=== PATIENT | female | born 1950 | race Caucasian/White ===

== ENCOUNTER 2019-10-10 06:28 | Day surgery (SDC) | payer OTHER ==
[2019-10-08 11:23] LABS: Absolute Lymphocytes (CBC) 1.8 K/uL (0.7-4.9); Basophils % 1.3 % (0-1.3); Hematocrit 39.2 % (36.0-45.0); Lymphocytes % 28.8 % (15.3-44.8); MPV 9.1 fL (7.6-11.3); RBC Red Blood Cell Count 4.05 M/uL (3.86-4.86)
--- NOTE | 2019-10-08 11:25 | EKG ---
Test Date: 2019-10-08 Test Time: 10:53:54 Grant Officer: JOO MEASUREMENT RESULTS: Intervals: Rate: 70 NV: 116 QRSD: 72 QT: 376 QTc: 406 [place]: P: 72 NV: 116 QRS: 75 T: 70 INTERPRETIVE STATEMENTS: Normal sinus rhythm Normal ECG No previous ECG available for comparison Electronically Signed On 10-08-19 11:24:44 SITE ACQUISITION MANAGER by Thor Ward
[2019-10-08 11:40] LABS: Potassium 4.4 mmol/L (3.5-5.1)
[2019-10-10] MEDS ORDERED: Ringers Lactate 1,000 ML IV ONE ×2 (06:45→08:13)
[2019-10-10] MEDS ORDERED: CEFAZOLIN/SWI 1gm 1 GM/10 ML SYR ONE (06:45)
[2019-10-10] MEDS ORDERED: propofoL 200 MG/20 ML VIAL IV ONE (07:04)
[2019-10-10] MEDS ORDERED: LIDOCAINE 2% MPF 5 ML VIAL ONE (07:05)
[2019-10-10] MEDS ORDERED: FENTANYL CITR 250 MCG/5 ML ONE (07:05)
[2019-10-10] MEDS ORDERED: ONDANSETRON 4 MG/2 ML VIAL ONE ×2 (07:06→08:55)
[2019-10-10] MEDS ORDERED: MIDAZOLAM HCL 2 MG/2 ML INJ ONE (07:06)
[2019-10-10] MEDS ORDERED: BUPIVACA 0.5%/EPI 0.0005%/PF 30 ML VIAL ONE (07:29)
--- NOTE | 2019-10-10 08:20 | P.BOP ---
Preoperative diagnosis: right knee pain with mechanical sx, probable meniscal tear (s) Postoperative diagnosis: mm/lm tear, cm 4 lat, 2-3 medial/pf Primary procedure: MM/LM debridement Estimated blood loss: <10 Anesthesia: General Complications: None Transferred to: Recovery Room Condition: Good
[2019-10-10] MEDS: HYDROMORPHONE HCL 1 MG/ML INJ ONE ×2 (08:40→08:46)
[2019-10-10] MEDS ORDERED: KETOROLAC 30 MG/ML INJ ONE (08:56)
[2019-10-10] MEDS ORDERED: HYDROMORPHONE HCL 1 MG/ML INJ ONE (09:11)
[2019-10-10 09:44] VITALS: BP 136/70; TEMP 97.3; O2SAT 93
[2019-10-10] MEDS ORDERED: CODEINE 30MG/APAP 300MG TAB ONE (09:59)
--- NOTE | 2019-10-10 18:02 | OP ---
Date of Procedure: 10/10/2019 Surgeon: Nick Reid MD Preoperative Diagnoses: Right knee pain with mechanical symptoms, some arthritic changes as well as probable meniscal tear or tears. 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 Also small medial meniscus tear, also larg e complex of lateral meniscal tear with displaceable meniscal tissue. Estimated Blood Loss: Less than 10 cc. Complications: There is no complication. Pathology/specimens: No pathology specimens sent. Indications For Operation: Ms. Cantu is a 68-year-old female who unfortunately has been suffering with the right knee for some time with mechanical symptoms as well as pain and swelling. She has an MRI, which demonstrates probable meniscal tear or tears as well as some degenerative changes. All ri sks, benefits, and alternatives to operative intervention were discussed with the patient including t hat arthroscopy is not good for degenerative articular lesions, however, this may help with mechanica l symptoms, especially with displaced or displaceable meniscal tears. She says she understands thing s as presented, understands the other risks associated and agrees to proceed. Description Of Procedure: The patient was taken to the operating room and placed in the supine posit ion. General anesthesia was obtained by staff. Following this, a well-padded tourniquet placed on s uperior right thigh. Right lower extremity was then prepped and draped in the usual sterile fashion for procedure. Following this, a standard superior medial arthroscopy portal was then placed with pl acement of a drainage needle with liberation approximately 40 cc of rather normal-appearing synovial fluid. This was followed by placement of an inferolateral arthroscopy portal and the camera was then placed to the knee atraumatically with 1 pass. The knee was then sequentially examined including champion prapatellar pouch, medial lateral gutters, and medial lateral compartments as well as notch, patellof emoral joint. There was quite a bit of synovial fronding indicative of significant inflammation seen more or less throughout. Also, there was grade 2 chondromalacia of the medial and patellofemoral horacio int. Also seen is a small tear of the medial meniscus. 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 An inferior medial arthroscopy port al was then established using a needle for localization. This allowed for placement of a probe and u sed as a working portal. A small medial meniscal tear was then debrided back to a firm hook stable, well contoured base. Attention was then turned to the lateral aspect where a combination of hand ins truments as well as 3.5 and 4.5 madelyn then used to debride back the lateral meniscus to a firm hook stable, well contoured base. The knee was then again examined in all the above areas with some syno vial tissue being removed throughout if it appeared to be greatly enlarged, but no formal synovectomy is done. This was followed by removal of the inferior arthroscopy instruments and staple of the inf erior arthroscopy instruments. The superior medial arthroscopy portal was used for placement of Berto gina with epinephrine. This was then stapled as well. The patient was placed in a well-padded steri le dressing, awakened, and taken to recovery room in good condition. There were no complications. SE/MODL Voice ID: [id number] Report ID: [id number]
== END 2019-10-10 10:35 | disposition home or self-care (01) ==
LOC: OR 06:28
PROVIDERS: ATTEND Orthopaedic Surgery
PROC: 0SBC4ZZ Excision of Right Knee Joint, Percutaneous Endoscopic Approach (ICD-10-PCS; 2019-10-10)
PROC: 0SBC4ZZ Excision of Right Knee Joint, Percutaneous Endoscopic Approach (ICD-10-PCS; principal; 2019-10-10 07:30)
DX: S83.271A Complex tear of lateral meniscus, current injury, right knee, initial encounter (principal); S83.241A Other tear of medial meniscus, current injury, right knee, initial encounter; M94.261 Chondromalacia, right knee; I10 Essential (primary) hypertension; F32.9 Major depressive disorder, single episode, unspecified
CPT/HCPCS: 29880; 93005; 85025; 80048; 36415; J2704; J2250; J3010; J1170 ×2; J0690; J7120 ×2; J2405 ×2

== ENCOUNTER 2021-01-20 16:56 | Emergency (ER) | payer OTHER ==
[2021-01-20] MEDS ORDERED: ONDANSETRON 4 MG/2 ML VIAL ONE (17:57)
[2021-01-20] MEDS ORDERED: MORPHINE 4 MG/ML SYR ONE ×2 (17:57→19:40)
--- NOTE | 2021-01-20 19:09 | RAD REPORT ---
EXAM DESCRIPTION: RAD - Knee Left 3 View - 01/20/2021 6:34 pm CLINICAL HISTORY: Left knee pain status post injury FINDINGS: No fracture or dislocation is seen. Bones are osteoporotic. A large joint effusion is present. If patient continues have symptoms to suggest an occult fracture, ligamentous or meniscal injury then MRI would be recommended
--- NOTE | 2021-01-20 19:10 | RAD REPORT ---
EXAM DESCRIPTION: RAD - Wrist Left 3 View - 01/20/2021 6:34 pm CLINICAL HISTORY: Left wrist pain status post injury FINDINGS: An impacted mildly displaced fracture distal radius. Avulsion fracture of the ulnar styloid process of indeterminate age No dislocation
--- NOTE | 2021-01-20 19:36 | ER ---
Nurse's Notes [facility] Name: Emerald Cantu Age: 70 yrs Sex: Female : 1950 Arrival Date: 01/20/2021 Time: 17:03 Bed 25 Private MD: Sylvester Mahan C Diagnosis: Effusion, left knee;Colles' fracture of left radius Presentation: 01/20 17:07 Chief complaint: Patient states: i went downstairs and twisted my LEFT knee and was on tw2 crutches and should have picked up the rugs and i didn't. so i fell and landed on my RIGHT wrist. cannot put weight on my LEFTknee. Coronavirus screen: At this time, the client does not indicate any symptoms associated with coronavirus-19. Ebola Screen: Patient denies travel to an Ebola-affected area in the 21 days before illness onset. Initial Sepsis Screen: Does the patient meet any 2 criteria? Does the patient have a suspected source of infection? No. Patient's initial sepsis screen is negative. Risk Assessment: Do you want to hurt yourself or someone else? Patient reports no desire to harm self or others. Onset of symptoms was January 20, 2021. 17:07 Method Of Arrival: Wheelchair tw2 17:07 Acuity: DONNELL 4 tw2 Triage Assessment: 17:12 General: Appears in no apparent distress. slender, well groomed, Behavior is calm, tw2 cooperative, appropriate for age. Pain: Complains of pain in LEFT knee and LEFT wrist. Historical: - Allergies: 17:12 Codeine; tw2 - Home Meds: 17:12 gabapentin oral oral [Active]; paroxetine oral oral [Active]; tw2 - PMHx: 17:12 Hypertension; Hyperlipidemia; tw2 - PSHx: 17:12 right knee sx; tw2 - Immunization history:: Adult Immunizations. - Social history:: Smoking status: . Screenin:28 Abuse screen: Denies threats or abuse. Nutritional screening: No deficits noted. vg1 Tuberculosis screening: No symptoms or risk factors identified. Fall Risk Fall in past 12 months (25 points). No secondary diagnosis (0 pts). No IV (0 pts). Ambulatory Aid- None/Bed Rest/Nurse Assist (0 pts). Gait- Normal/Bed Rest/Wheelchair (0 pts) Mental Status- Oriented to own ability (0 pts). Total Zhou Fall Scale indicates Low Risk Score (25-44 pts). Fall prevention measures have been instituted. Side Rails Up X 2 Placed close to Nursing Station Family Present and informed to notify staff if they need to leave bedside. Assessment: 17:26 General: Appears in no apparent distress. uncomfortable, Behavior is calm, cooperative. vg1 Pain: Complains of pain in left wrist and left knee Pain currently is 10 out of 10 on a pain scale. Quality of pain is described as throbbing, Pain began 1 day ago. Noted to be grimacing. Neuro: Level of Consciousness is awake, alert, obeys commands, Oriented to person, place, time, situation. Cardiovascular: Capillary refill < 3 seconds in bilateral fingers toes. Respiratory: Airway is patent Respiratory effort is even, unlabored. GI: No signs and/or symptoms were reported involving the gastrointestinal system. : No signs and/or symptoms were reported regarding the genitourinary system. EENT: No signs and/or symptoms were reported regarding the EENT system. Derm: Skin is intact, is healthy with good turgor, Bruising that is dark purple, on left wrist. Musculoskeletal: Range of motion: limited in left wrist and left knee Swelling present in left wrist and left knee. 17:33 Reassessment: Received VO from Dr Copeland to administer 4 mg of Morphine IVP x1 and vg1 Zofran 4 mg IVP x1. 19:49 Reassessment: Patient is alert, oriented x 3, equal unlabored respirations, skin bb warm/dry/pink. sling to left arm in place pt verbalized understanding of and agrees to plan of care discharge instructions given pt assisted to exit via wheelchair accompanied by ophthalmology surgical technician and family Patient states feeling better. Vital Signs: 17:07 BP 156 / 96; Pulse 92; Resp 17; Temp 98.5(TE); Pulse Ox 97% on R/A; Weight 65.77 kg tw2 (R); Pain 10/10; 17:50 BP 166 / 99; Pulse 86; Resp 16; Pulse Ox 100% on R/A; vg1 19:44 BP 152 / 94; Pulse 85; Resp 16; Pulse Ox 100% on R/A; vg1 ED Course: 17:03 Patient arrived in ED. mr 17:03 Sylvester Mahan MD is Private Physician. mr 17:10 Triage completed. tw2 17:12 Arm band placed on. tw2 17:19 Shailesh Copeland MD is Attending Physician. kdr 17:26 Gloria Lopez, RN is Primary Nurse. vg1 17:29 Patient maintains SpO2 saturation greater than 95% on room air. vg1 17:30 Patient has correct armband on for positive identification. Bed in low position. Call vg1 light in reach. Side rails up X2. Adult w/ patient. 17:45 Inserted saline lock: 20 gauge in right antecubital area, using aseptic technique. vg1 18:33 Wrist Left (3 View) XRAY In Process Unspecified. EDMS 18:34 Knee Left 3 View XRAY In Process Unspecified. EDMS 18:41 Endy Cooney PA is PHCP. cp 19:32 Nick Reid MD is Referral Physician. cp 19:38 Orthoglass splint: Sugar tong splint applied on left arm. Knee immobilizer applied on oe left knee. Sling applied to left arm. 19:49 No provider procedures requiring assistance completed. IV discontinued, intact, vg1 bleeding controlled, No redness/swelling at site. Pressure dressing applied. Administered Medications: 17:46 Drug: Zofran (Ondansetron) 4 mg Route: IVP; Site: right antecubital; vg1 18:30 Follow up: Response: No adverse reaction vg1 17:48 Drug: morphine 4 mg Route: IVP; Site: right antecubital; vg1 18:30 Follow up: Response: No adverse reaction; Pain is decreased vg1 19:32 Drug: morphine 4 mg {Note: rass 0.} Route: IVP; Site: right antecubital; vg1 19:50 Follow up: Response: No adverse reaction; Pain is decreased vg1 Outcome: 19:35 Discharge ordered by . cp 19:49 Discharged to home via wheelchair, with family. vg1 19:49 Condition: stable 19:49 Discharge instructions given to patient, family, Instructed on discharge instructions, follow up and referral plans. medication usage, Demonstrated understanding of instructions, follow-up care, medications, Prescriptions given X 1. 19:50 Patient left the ED. vg1 Signatures: Dispatcher [employer] EDMS Shailesh Copeland MD MD [facility] Emanuel, Bindu mr Dumont, Alda, RN RN bb Endy Cooney PA PA cp Wise, Tara, RN RN tw2 Ayo Colvin Victoria RN RN vg1
--- NOTE | 2021-01-20 19:36 | EDPHYS ---
Physician Documentation [facility] Name: Emerald Cantu Age: 70 yrs Sex: Female : 1950 Arrival Date: 01/20/2021 Time: 17:03 Bed 25 Private MD: Sylvester Mahan C ED Physician Shailesh Copeland HPI: 01/20 18:45 This 70 yrs old Female presents to ER via Wheelchair with complaints of Fall cp Injury. 18:45 Details of fall: The patient fell from an upright position, while walking, after cp tripping on floor rug. Onset: The symptoms/episode began/occurred today. 18:45 Associated injuries: The patient sustained left knee, painful injury, swelling, left cp wrist, decreased range of motion, obvious fracture, painful injury, swelling. 18:45 Patient reports trip and fall causing injury to left wrist and left knee. cp Historical: - Allergies: 17:12 Codeine; tw2 - Home Meds: 17:12 gabapentin oral oral [Active]; paroxetine oral oral [Active]; tw2 - PMHx: 17:12 Hypertension; Hyperlipidemia; tw2 - PSHx: 17:12 right knee sx; tw2 - Immunization history:: Adult Immunizations. - Social history:: Smoking status: . ROS: 18:55 Constitutional: Negative for body aches, chills, fever, poor PO intake. cp 18:55 Eyes: Negative for injury, pain, redness, and discharge. cp 18:55 ENT: Negative for ear pain, sore throat, difficulty swallowing, difficulty handling secretions. 18:55 Cardiovascular: Negative for chest pain, palpitations. 18:55 Respiratory: Negative for cough, shortness of breath, wheezing. 18:55 Back: Negative for pain at rest, pain with movement. 18:55 MS/extremity: Positive for injury or acute deformity, decreased range of motion, pain, swelling, tenderness, of the left knee and left wrist, Negative for paresthesias. 18:55 Neuro: Negative for altered mental status, dizziness, headache, syncope, weakness. 18:55 All other systems are negative. Exam: 19:00 Head/Face: Normocephalic, atraumatic. cp 19:00 Constitutional: The patient appears in no acute distress, alert, awake, non-diaphoretic, non-toxic, well developed, well nourished. 19:00 Chest/axilla: Inspection: normal, Palpation: is normal, no crepitus, no tenderness. 19:00 Cardiovascular: Rate: normal, Rhythm: 19:00 Respiratory: the patient does not display signs of respiratory distress, Respirations: cp normal, no use of accessory muscles, no retractions, Breath sounds: are clear throughout. 19:00 Abdomen/GI: Exam negative for discomfort, distension, guarding, Inspection: abdomen appears normal. 19:00 Back: pain, is absent, ROM is normal. 19:00 Musculoskeletal/extremity: Extremities: grossly normal except: noted in the left wrist: decreased ROM, deformity, ecchymosis, pain, swelling, tenderness, noted in the left knee: decreased ROM, pain, swelling, tenderness, ROM: limited passive range of motion due to pain, in the left wrist and left knee, Pulses: noted to be 2+ in the left radial artery and left dorsalis pedis artery. 19:00 Neuro: Orientation: to person, place \T\ time. Mentation: is normal. Vital Signs: 17:07 BP 156 / 96; Pulse 92; Resp 17; Temp 98.5(TE); Pulse Ox 97% on R/A; Weight 65.77 kg tw2 (R); Pain 10/10; 17:50 BP 166 / 99; Pulse 86; Resp 16; Pulse Ox 100% on R/A; vg1 19:44 BP 152 / 94; Pulse 85; Resp 16; Pulse Ox 100% on R/A; vg1 Procedures: 19:50 Splinting: Splint applied to left wrist using Orthoglass splint, sling, sugar tong cp type. applied by tech. Examined by me, post splint application: neurovascular intact, Patient tolerated well. 19:50 Splinting: Splint applied to left knee using knee immobilizer, applied by tech. cp Examined by me, post splint application: neurovascular intact, Patient tolerated well. MDM: 18:00 Differential diagnosis: contusion, fracture, multiple trauma. cp 18:47 Patient medically screened. cp 19:35 Data reviewed: vital signs, nurses notes, radiologic studies, plain films, I have cp discussed the patient's presentation/case with the attending Emergency Department Physician; and as a result, I will discharge patient. 19:35 Test interpretation: by ED physician or midlevel provider: plain radiologic studies. cp Counseling: I had a detailed discussion with the patient and/or guardian regarding: the historical points, exam findings, and any diagnostic results supporting the discharge/admit diagnosis, radiology results, the need for outpatient follow up, for definitive care, a orthopedic surgeon, to return to the emergency department if symptoms worsen or persist or if there are any questions or concerns that arise at home. Response to treatment: the patient's symptoms have markedly improved after treatment, and as a result, I will discharge patient. 01/20 17:33 Order name: Wrist Left (3 View) XRAY; Complete Time: 19:12 kdr 01/20 19:12 Interpretation: Report reviewed. 01/20 17:33 Order name: Knee Left 3 View XRAY; Complete Time: 19:12 kdr 01/20 19:12 Interpretation: Report reviewed. 01/20 17:32 Order name: IV Saline Lock; Complete Time: 17:49 vg1 01/20 18:49 Order name: Knee Immobilizer; Complete Time: 19:32 cp 01/20 18:49 Order name: Splint - Sugar Tong - Forearm; Complete Time: 19:32 cp 01/20 18:49 Order name: Sling; Complete Time: 19:32 cp Administered Medications: 17:46 Drug: Zofran (Ondansetron) 4 mg Route: IVP; Site: right antecubital; vg1 18:30 Follow up: Response: No adverse reaction vg1 17:48 Drug: morphine 4 mg Route: IVP; Site: right antecubital; vg1 18:30 Follow up: Response: No adverse reaction; Pain is decreased vg1 19:32 Drug: morphine 4 mg {Note: rass 0.} Route: IVP; Site: right antecubital; vg1 19:50 Follow up: Response: No adverse reaction; Pain is decreased vg1 Disposition: 01/20/21 19:35 Discharged to Home. Impression: Effusion, left knee, Colles' fracture of left radius. - Condition is Stable. - Discharge Instructions: Colles Fracture, Knee Effusion. - Prescriptions for Tylenol- Codeine #3 300-30 mg Oral Tablet - take 2 tablets by ORAL route every 8-10 hours As needed; 30 tablet. - Medication Reconciliation Form, Thank You Letter, Antibiotic Education, Prescription Opioid Use form. - Follow up: Nick Reid MD; When: 2 - 3 days; Reason: Recheck today's complaints. - Problem is new. - Symptoms have improved. Addendum: 01/24/2021 07:08 Co-signature as Attending Physician, Shailesh Copeland MD I agree with the assessment and k dr plan of care. Signatures: Dispatcher [employer] EDMS Shailesh Copeland MD MD [facility] Endy Cooney PA PA cp Melinda Louise RN RN tw2 Gloria Lopez RN RN vg1 Corrections: (The following items were deleted from the chart) 01/20 19:50 19:35 01/20/2021 19:35 Discharged to Home. Impression: Effusion, left knee; Colles' vg1 fracture of left radius. Condition is Stable. Forms are Medication Reconciliation Form, Thank You Letter, Antibiotic Education, Prescription Opioid Use. Follow up: Nick Reid; When: 2 - 3 days; Reason: Recheck today's complaints. Problem is new. Symptoms have improved. cp
[2021-01-20 20:02] VITALS: TEMP 98.5
[2021-01-20 20:04] VITALS: O2SAT 100
[2021-01-20 20:05] VITALS: BP 152/94
== END 2021-01-20 19:50 | disposition home or self-care (01) ==
LOC: ER 16:56
PROC: 2W3DX1Z Immobilization of Left Lower Arm using Splint (ICD-10-PCS; principal; 2021-01-20)
DX: S52.532A Colles' fracture of left radius, initial encounter for closed fracture (principal); M25.462 Effusion, left knee; W01.0XXA Fall on same level from slipping, tripping and stumbling without subsequent striking against object, initial encounter; I10 Essential (primary) hypertension; Z88.5 Allergy status to narcotic agent
CPT/HCPCS: 73110; 73562; 96375; 96374; 99284; 29125; J2405